=== PATIENT | female | born 1975 | race Two or more races ===

== ENCOUNTER 2021-03-17 07:16 | Emergency (ER) | payer SELFPAY ==
[~2021-03-17] VITALS: Ht 157.5 cm; Wt 66.3 kg
[2021-03-17] MEDS ORDERED: LIDO:MAALOX 1:1 20 ML SINGLE DOSE. SWSW ONE (07:45)
[2021-03-17] MEDS ORDERED: LIDOCAINE 2% VISCOUS 15 ML SOLUTION. SWSW ONE (07:45)
--- NOTE | 2021-03-17 07:53 | PHYS DOC ---
Past Medical History Past Medical History: GERD, Hypertension General Adult EDM: Chief Complaint: MULTIPLE COMPLAINTS HPI: HPI: Patient is a 45 year old female with PMH of GERD and HTN who presents with intermittent palpitations. States that they were happening all night. [place] her heart racing at times. She also has had burning sensation in her chest, right arm, and right neck. States that the burning sensation has been on and off for several years. She takes a proton pump inhibitor for those symptoms. This time feels much more intense. Review of Systems: Review of Systems: Constitutional: Denies fever or chills. [] Eyes: Denies change in visual acuity. [] HENT: Denies nasal congestion or sore throat. [] Respiratory: Denies cough or shortness of breath. [] Cardiovascular: + Chest burning and palpitations no edema.. [] GI: Denies abdominal pain, nausea, vomiting, bloody stools or diarrhea. [] : Denies dysuria. [] Musculoskeletal: Denies back pain or joint pain. [] Integument: Denies rash. [] Neurologic: Denies headache, focal weakness or sensory changes. [] Endocrine: Denies polyuria or polydipsia. [] Lymphatic: Denies swollen glands. [] Psychiatric: Denies depression or anxiety. [] Heart Score: C/O Chest Pain: Yes HEART Score for Chest Pain: HEART Score for Chest Pain Response (Comments) Value History Moderately Suspicious 1 ECG Normal 0 Age >45 - < 65 1 Risk Factors 1 or 2 Risk Factors 1 Troponin < Normal Limit 0 Total 3 Risk Factors: Risk Factors: DM, Current or recent (<one month) smoker, HTN, HLP, family history of CAD, obesity. Risk Scores: Score 0 - 3: 2.5% MACE over next 6 weeks - Discharge Home Score 4 - 6: 20.3% MACE over next 6 weeks - Admit for Clinical Observation Score 7 - 10: 72.7% MACE over next 6 weeks - Early Invasive Strategies Physical Exam: PE: Constitutional: Appears mildly uncomfortable. No acute distress.. [] HENT: Normocephalic, atraumatic. [] Eyes: conjunctiva normal, no discharge. [] Neck: Normal range of motion, no tenderness, supple, no stridor. [] Cardiovascular:Heart rate regular rhythm, no murmur [] Lungs & Thorax: Bilateral breath sounds clear to auscultation [] Abdomen: Bowel sounds normal, soft, mild epigastric tenderness to palpation, no masses, no pulsatile masses. [] Skin: Warm, dry, no erythema, no rash. [] Back: No tenderness, no CVA tenderness. [] Extremities: No tenderness, no cyanosis, no clubbing, ROM intact, no edema. [] Neurologic: Alert and oriented X 3, normal motor function, normal sensory function, no focal deficits noted. [] Psychologic: Affect normal, judgement normal, mood normal. [] Current Patient Data: Labs: Laboratory Tests Test 03/17/21 07:30 POC Urine HCG, Qualitative Hcg negative (Negative) EKG: EKG: [] Sinus rhythm. Rate 72. Normal intervals. QTc 422. Normal axis. No acute ischemic changes/ST elevation/depression. Radiology/Procedures: Radiology/Procedures: CXR [] Impression: [facility] [address] [place], [place] [id number] IMAGING REPORT Signed PATIENT: UZMA GAINESACCOUNT: [id number] : 1975 LOCATION: ER AGE: 45 SEX: F EXAM STATUS: PRE ER ORD. PHYSICIAN: AMALIA KINCAID MD REASON: palpitations, chest pain PROCEDURE: CHEST AP ONLY XR CHEST 1V History: Reason: palpitations, chest pain / Spl. Instructions: / History: Comparison: None. Findings: No consolidation or pleural effusion. Normal heart size. No pneumothorax. Impression: 1. No acute cardiopulmonary process. Electronically signed by: Nuha Fletcher DO (03/17/2021 8:20 AM) [id number] DICTATED and SIGNED BY: NUHA FLETCHER DO DATE: 03/17/21 [id number] Course & Med Decision Making: Course & Med Decision Making Pertinent Labs and Imaging studies reviewed. (See chart for details) Patient is a 45-year-old female with history of HTN and GERD who presents with palpitations and more severe GERD symptoms than usual. States that she has burning in her chest going to her right neck and right arm. EKG nonischemic. No evidence of arrhythmia. We will continue to monitor on telemetry. We will check a troponin given radiation to right arm and neck raising concerns for ACS. Given duration of symptoms a single troponin should be sufficient to risk stratify. We will check CXR, electrolytes, liver function, cell counts. We will treat with a GI cocktail and viscous lidocaine. 0752 EKG non-ischemic. Trop negative. HEART Score 3, and seem more c/w GERD. Do not feel she requires further testing in ED or hospitalization. CBC, CMP, Lipase all reassuring. CXR normal. Feeling much better with GI cocktail. Telemetry with normal sinus rhythm thr oughout stay. Safe for dc w/ PCP f/u. WIll provide sucralfate Rx. 09 [employer] Disclaimer: [employer] Disclaimer: This electronic medical record was generated, in whole or in part, using a voice recognition dictation system. Departure Departure Impression: Primary Impression: GERD (gastroesophageal reflux disease) Disposition: HOME / SELF CARE / HOMELESS Condition: STABLE Additional Instructions: Your work-up today was very reassuring. This seems most consistent with GERD. I have given you a new prescription please consider taking this as directed. Please follow-up with your primary care doctor to ensure your symptoms are being managed. If you continue to feel worse, become short of breath, high fever/chills, or other new/concerning symptoms arise please return to the emergency department for reevaluation. Scripts Sucralfate (SUCRALFATE) 1 Gm Tablet 1 TAB PO TID for GERD/GASTRITIS , #60 TAB 0 Refills Prov: AMALIA KINCAID MD 03/17/21 AMALIA KINCAID MD Mar 17, 2021 07:53
[2021-03-17 08:02] LABS: BASO # 0.1 x10^3/uL (0.0-0.2); BASO % 1 % (0-3); EOS # 0.1 x10^3/uL (0.0-0.7); EOS % 1 % (0-3); HEMATOCRIT 40.4 % (36.0-47.0); HEMOGLOBIN 14.2 g/dL (12.0-15.5); LYMPH # 1.5 x10^3/uL (1.0-4.8); LYMPH % 25 % (24-48); MEAN CORPUSCULAR HEMOGLOBIN 32 pg (25-35); MEAN CORPUSCULAR HGB CONC 35 g/dL (31-37); MEAN CORPUSCULAR VOLUME 91 fL (79-100); MONO # 0.3 x10^3/uL (0.0-1.1); MONO % 6 % (0-9); NEUT % 68 % (31-73); PLATELET COUNT 312 x10^3/uL (140-400); RED BLOOD COUNT 4.44 x10^6/uL (3.50-5.40); RED CELL DISTRIBUTION WIDTH 12.6 % (11.5-14.5); WHITE BLOOD COUNT 5.9 x10^3/uL (4.0-11.0)
[2021-03-17 08:11] VITALS: BP 152/78
[2021-03-17 08:11] LABS: CALCIUM 9.3 mg/dL (8.5-10.1); CREATININE 0.8 mg/dL (0.6-1.0); GFR 76.9; POTASSIUM 3.7 mmol/L (3.5-5.1)
[2021-03-17 08:17] LABS: ALBUMIN/GLOBULIN RATIO 1.1 (1.0-1.7); TOTAL BILIRUBIN 0.4 mg/dL (0.2-1.0); TOTAL PROTEIN 7.7 g/dL (6.4-8.2)
--- NOTE | 2021-03-17 08:23 | RAD ---
XR CHEST 1V History: Reason: palpitations, chest pain / Spl. Instructions: / History: Comparison: None. Findings: No consolidation or pleural effusion. Normal heart size. No pneumothorax. Impression: 1. No acute cardiopulmonary process. Electronically signed by: Charles Roger DO (03/17/2021 8:20 AM) [id number]
[2021-03-17] MEDS ORDERED: SUCR1TAB PO (09:05)
== END 2021-03-17 09:41 | disposition home or self-care (01) ==
LOC: ER 07:16
DX: K21.9 Gastro-esophageal reflux disease without esophagitis (principal); I10 Essential (primary) hypertension
CPT/HCPCS: 36415; 71045; 80053; 81025; 83690; 84484; 85025; 93005; 99285-25